=== PATIENT | female | born 1945 | race Caucasian/White ===

== ENCOUNTER 2017-06-18 12:56 | Emergency (ER) | payer MEDICARE ==
[2017-06-18 13:32] VITALS: BP 128/76
--- NOTE | 2017-06-18 14:47 | UC ---
Skin Complaint HPI - HPI Summary HPI Summary: Redness and facial swelling with warmth upon awakening this morning. Some swelling on the left > right. Did get flu and pneumonia shot yesterday. - History of Current Complaint Chief Complaint: UCSkin Time Seen by Provider: 06/18/17 14:41 Stated Complaint: LEFT SIDE FACE SWELLING/REDNESS Hx Obtained From: Patient Onset/Duration: Sudden Onset, Worse Since - onset this morning. Timing: Constant Onset Severity: Mild Current Severity: Moderate Location: Face - butterfly distribution over the middle of the face and over the cheeks. Character: Swelling, Redness Aggravating Factor(s): Nothing Alleviating Factor(s): Nothing Associated Signs & Symptoms: Positive: Rash. Negative: Diaphoresis, Shivering, Fever, Chills, Tenderness, Red Streaks Similar Episode/Dx as: Rosacea - Allergy/Home Medications Allergies/Adverse Reactions: Allergies Allergy/AdvReac Type Severity Reaction Status Date / Time Antibiotic unknown Allergy Rash Uncoded 06/18/17 13:25 Home Medications: Home Medications Cyanocobalamin [Vitamin B 12] 100 mcg PO DAILY 06/18/17 [History Confirmed 06/18] Tumeric 1 tab PO DAILY 06/18/17 [History] Review of Systems Skin: Rash Musculoskeletal: Myalgia Is Patient Immunocompromised?: No All Other Systems Reviewed And Are Negative: Yes PMH/Surg Hx/FS Hx/Imm Hx Endocrine History: Diabetes Cardiovascular History: Hypertension - Surgical History Surgical History: Yes Surgery Procedure, Year, and Place: gall bladder and appendix. rotator cuff x3. hysterectomy - Family History Known Family History: Positive: Cardiac Disease, Hypertension, Diabetes - Social History Occupation: Retired Lives: With Family Alcohol Use: None Substance Use Type: None Smoking Status (MU): Never Smoked Tobacco Have You Smoked in the Last Year: No Physical Exam Triage Information Reviewed: Yes Appearance: Well-Appearing, No Pain Distress, Well-Nourished Vital Signs: Initial Vital Signs Temp 98 F 06/18/17 13:28 Pulse 69 06/18/17 13:28 Resp 18 06/18/17 13:28 BP 128/76 06/18/17 13:28 Pulse Ox 99 06/18/17 13:28 Vital Signs Reviewed: Yes Eyes: Positive: Conjunctiva Clear Neck exam: Normal Respiratory Exam: Normal Cardiovascular Exam: Normal Musculoskeletal Exam: Normal Neurological Exam: Normal Psychological Exam: Normal Skin: Positive: rashes - erythematous papular rash butterfly distribution over the face. Course/Dx - Differential Diagnoses - Skin Complaint Differential Diagnoses: Allergic Reaction, Erythema Multiforme, Impetigo - Diagnoses Provider Diagnoses: Rosacea Discharge - Discharge Plan Condition: Stable Disposition: HOME Prescriptions: Hydrocortisone 2.5% CREAM(NF) 1 applic TOPICAL BID #30 gm Patient Education Materials: Rosacea (ED), Hydrocortisone (On the skin) Referrals: Radha Horne NP [Primary Care Provider] -
== END 2017-06-18 15:00 | disposition home or self-care (01) ==
LOC: UCCORT 12:56
DX: L71.9 Rosacea, unspecified (principal); M79.1 Myalgia; E11.9 Type 2 diabetes mellitus without complications; I10 Essential (primary) hypertension; Z90.49 Acquired absence of other specified parts of digestive tract; Z90.710 Acquired absence of both cervix and uterus; Z88.1 Allergy status to other antibiotic agents
CPT/HCPCS: 99212; G0463

== ENCOUNTER 2020-03-15 16:35 | Observation (INO) ==
[2020-03-15 17:49] LABS: ABS Basophils 0.1 10^3/ul (0-0.2); ABS Eosinophils 0.1 10^3/ul (0-0.6); ABS Lymphocytes 2.2 10^3/ul (1.0-4.8); ABS Monocytes 0.3 10^3/ul (0-0.8); ABS Neutrophils 7.1 10^3/ul (1.5-7.7); Eosinophil % 1.3 %; Hematocrit 35 % (35-47); Hemoglobin 12.1 g/dL (12.0-16.0); Lymphocyte % 22.4 %; Mean Corpuscular HGB Conc 34 g/dL (31-36); Mean Corpuscular Hemoglobin 29 pg (27-31); Mean Corpuscular Volume 85 fL (80-97); Mean Platelet Volume 8.4 fL (7.4-10.4); Platelet Count 353 10^3/uL (150-450); Red Blood Count 4.19 10^6 /uL (3.70-4.87); Red Cell Distribution Width 17 % (10-15); White Blood Count 9.8 10^3/uL (3.5-10.8)
[2020-03-15 18:12] LABS: Albumin 4.2 g/dL (3.2-5.2); Albumin/Globulin Ratio 1.1 (1-3); BUN/Creatinine Ratio 22.9 (8-20); Calcium 9.7 mg/dL (8.6-10.3); EGFR African American 68.6 (>60); EGFR Non-African American 56.7 (>60); Globulin 3.8 g/dL (2-4); Total Bilirubin 0.7 mg/dL (0.2-1.0)
[2020-03-15] MEDS ORDERED: NS 0.9% 1000 ml BAG 1,000 ML IV ONE (19:54)
[2020-03-15 20:02] LABS: Urine Appearance Cloudy; Urine Bilirubin Negative (Negative); Urine Blood Negative (Negative); Urine Color Straw; Urine Glucose Negative (Negative); Urine Ketones Negative (Negative); Urine Nitrite Negative (Negative); Urine Protein Negative (Negative); Urine Specific Gravity 1.008 (1.010-1.030); Urine Urobilinogen Negative (Negative)
[2020-03-15 20:05] LABS: Urine Bacteria 1+ (Absent); Urine Red Blood Cell 2+(6-10/hpf) (Absent); Urine Squamous Epithelial Cell Present (Absent); Urine White Blood Cell 3+(>20/hpf) (Absent)
[2020-03-15] MEDS ORDERED: cefTRIAXone 1 gm/50 mL NS BAG 1 GM/50 ML BAG IV ONE (20:09)
[2020-03-15] MEDS ORDERED: NS 0.9% 1000 ml BAG 1,000 ML IV SCH (21:15)
[2020-03-15] MEDS: Enoxaparin 40 MG/0.4 ML SYR SUBCUT SCH (23:40)
[2020-03-16] MEDS: DULoxetine DR 60 mg CAP PO SCH (11:35)
[2020-03-16] MEDS: Enoxaparin 40 MG/0.4 ML SYR SUBCUT SCH (20:56)
[2020-03-17 07:05] LABS: BUN/Creatinine Ratio 20.4 (8-20); Calcium 9.2 mg/dL (8.6-10.3); EGFR African American 66.9 (>60); EGFR Non-African American 55.3 (>60); Potassium 3.8 mmol/L (3.5-5.0)
[2020-03-17] MEDS: DULoxetine DR 60 mg CAP PO SCH (10:47)
[2020-03-17 16:29] VITALS: BP 108/64
== END 2020-03-17 17:00 | disposition home or self-care (01) ==
LOC: ED 16:35 → MED 16:35
PROVIDERS: ADMIT Physician Assistant Medical; ATTEND Internal Medicine